=== PATIENT | male | born 1955 | race Caucasian/White ===

== ENCOUNTER 2020-08-26 04:41 | Inpatient (IN) | payer OTHER ==
[2020-08-26] MEDS ORDERED: PROPOFOL 20 ML ONE (13:06)
[2020-08-26] MEDS ORDERED: MIDAZOLAM HCL 2 MG/2 ML SINGLE DOSE VIAL ONE (13:07)
[2020-08-26] MEDS ORDERED: ACETAMINOPHEN 1000 MG/100 ML VIAL (NON FORMULARY) IVPB ONE (13:40)
[2020-08-26] MEDS ORDERED: DEXTROSE 5%-0.45% SALINE 1,000 ML IV SCH (13:45)
[2020-08-26] MEDS ORDERED: ceFAZolin SODIUM 1 GM VIAL IVPB ONE (13:55)
[2020-08-26] MEDS ORDERED: ceFAZolin SODIUM 1 GM VIAL ONE (14:11)
[2020-08-26] MEDS: DEXTROSE 5%-0.45% SALINE 1,000 ML IV SCH (16:00)
[2020-08-26] MEDS ORDERED: ACETAMINOPHEN INJECTION 100 ML IVPB ONE (16:12)
[2020-08-26] MEDS ORDERED: LIDOCAINE HCL 2% JELLY (30 ML/TUBE) TP ONE (22:10)
[2020-08-26] MEDS ORDERED: morphine SULFATE 4 MG/ML VIAL IVPUSH ONE (22:10)
[2020-08-27] MEDS: DEXTROSE 5%-0.45% SALINE 1,000 ML IV SCH ×2 (01:00→15:56)
[2020-08-27] MEDS ORDERED: MELATONIN 5 MG TABLETS PO ONE (03:45)
[2020-08-27] MEDS ORDERED: morphine SULFATE 4 MG/ML VIAL IVPUSH ONE (03:46)
[2020-08-27] MEDS ORDERED: HYDROmorphone HCL 2 MG TABLET PO PRN (09:01)
[2020-08-27 09:12] LABS: BASO % 0.1 % (0-2.0); EOS % 0.1 % (0-4.5); HEMATOCRIT 37.6 % (35.4-49); HEMOGLOBIN 12.6 GM/dL (11.7-16.9); LYMPH % 2.6 % (8-40); MCH 28.4 pg (25.7-33.7); MCHC 33.5 g/dl (32.0-35.9); MEAN CELL VOLUME 84.6 fl (80-96); MONO % 4.5 % (3.8-10.2); NEUT % 92.7 % (42.8-82.8); PLATELET COUNT 204 K/MM3 (134-434); RBC 4.44 M/mm3 (4.00-5.60); RDW 13.3 % (11.9-15.9); WHITE BLOOD COUNT 11.4 K/mm3 (4.0-10.0)
[2020-08-27 09:27] LABS: CALCIUM 8.1 mg/dL (8.5-10.1)
[2020-08-27 09:28] LABS: BLOOD UREA NITROGEN 8.9 mg/dL (7-18)
[2020-08-27 09:31] LABS: CREATININE 0.6 mg/dL (0.55-1.3)
[2020-08-27] MEDS: OXYBUTYNIN CHLORIDE 5 MG TABLET PO SCH ×2 (11:12→22:02)
[2020-08-27] MEDS: CEFAZOLIN 1 GM/D5W 1 GM/50 ML BAG IVPB SCH ×2 (11:41→18:10)
[2020-08-27 12:01] LABS: ANISOCYTOSIS 1+; MACROCYTOSIS 0; OVALOCYTE 1+; PLATELET ESTIMATE NORMAL; TOXIC GRANULATION 2+
[2020-08-28] MEDS: CEFAZOLIN 1 GM/D5W 1 GM/50 ML BAG IVPB SCH ×3 (02:34→17:29)
[2020-08-28] MEDS ORDERED: PT OWN MED DRAWER 7, Y5N ONE (09:49)
[2020-08-28] MEDS: OXYBUTYNIN CHLORIDE 5 MG TABLET PO SCH (09:51)
[2020-08-28] MEDS: DEXTROSE 5%-0.45% SALINE 1,000 ML IV SCH (09:54)
[2020-08-28] MEDS ORDERED: ALPRAZolam 1 MG TABLET PO PRN (11:12)
[2020-08-28 21:59] LABS: ARTERIAL BLD GAS O2 SATURATION 88.3 mmHg (95-98); ARTERIAL BLOOD GAS BASE EXCESS -3.9 mmol/L (-2-2); ARTERIAL BLOOD GAS PO2 81.6 mmHg (80-100)
[2020-08-28 22:01] LABS: ALLENS TEST POSITIVE; ARTERIAL BLOOD GAS pH 7.021 (7.350-7.450)
[2020-08-28 22:02] LABS: VENT MODE A/C; VENT RATE 20
[2020-08-28 22:09] LABS: BASO % 0.3 % (0-2.0); EOS % 0.1 % (0-4.5); HEMATOCRIT 28.4 % (35.4-49); HEMOGLOBIN 9.4 GM/dL (11.7-16.9); MEAN CELL VOLUME 87.8 fl (80-96); MEAN PLT VOLUME 8.6 fl (7.5-11.1); MONO % 3.4 % (3.8-10.2); NEUT % 79.2 % (42.8-82.8); PLATELET COUNT 190 K/MM3 (134-434); RBC 3.23 M/mm3 (4.00-5.60); RDW 13.2 % (11.9-15.9); WHITE BLOOD COUNT 7.3 K/mm3 (4.0-10.0)
[2020-08-28] MEDS ORDERED: PROPOFOL 1,000,000 MCG/100 ML VIAL IVPB SCH (22:30)
[2020-08-28] MEDS ORDERED: FENTANYL IVPB 500 MCG/100 ML BAG IVPB SCH (22:30)
[2020-08-28] MEDS ORDERED: PROPOFOL 1,000,000 MCG/100 ML VIAL ONE (22:31)
[2020-08-28 22:43] LABS: CHLORIDE 96 mmol/L (98-107); SODIUM 137 mmol/L (136-145)
[2020-08-28 22:45] LABS: CALCIUM 8.9 mg/dL (8.5-10.1)
[2020-08-28 22:46] LABS: ANION GAP 8 MMOL/L (8-16); CO2 33 mmol/L (21-32); GLUCOSE,RANDOM 270 mg/dL (74-106); MAGNESIUM 2.7 mg/dL (1.8-2.4)
[2020-08-28 22:49] LABS: CREATININE 0.9 mg/dL (0.55-1.3); PHOSPHOROUS 7.9 mg/dL (2.5-4.9); SGOT/AST 35 U/L (15-37); SGPT/ALT 38 U/L (13-61)
[2020-08-28 22:51] LABS: BILIRUBIN,TOTAL 0.4 mg/dL (0.2-1); TOT PROT 4.1 g/dl (6.4-8.2)
[2020-08-28 22:52] LABS: ALK PHOS 50 U/L (45-117)
[2020-08-28] MEDS ORDERED: PIPERACILLIN/TAZOB 3.375 GM 3.375 GM in DEXTROSE 5%-WATER - 50 ML IVPB ONE (23:10)
[2020-08-28] MEDS ORDERED: VANCOMYCIN 1 GM in D5W (PRE-DOCKED) 1,000 MG/250 ML IVPB ONE (23:20)
[2020-08-28] MEDS ORDERED: NOREPINEPHRINE NS PREMIX 8,000 MCG/500 ML BAG IVPB SCH (23:30)
[2020-08-28] MEDS ORDERED: VANCOMYCIN 1 GRAM (PRE-DOCKED) 1,000 MG/250 ML BAG IVPB ONE (23:30)
[2020-08-28] MEDS ORDERED: MIDAZOLAM IN 0.9 % SOD.CHLORID 100 MG/100 ML PLAST..BAG IVPB SCH (23:45)
[2020-08-28 23:56] LABS: ARTERIAL BLD GAS O2 SATURATION 58.8 mmHg (95-98)
[2020-08-28 23:57] LABS: ALLENS TEST POSITIVE
[2020-08-28 23:58] LABS: VENT MODE A/C; VENT RATE 25
[2020-08-28] MEDS ORDERED: NOREPINEPHRINE BITARTRATE 8,000 MCG/500 ML BAG IVPB ONE (23:58)
[2020-08-28] MEDS ORDERED: NOREPINEPHRINE BITARTRATE 4 MG/4 ML ML IV ONE (23:58)
[2020-08-29] MEDS ORDERED: SODIUM CHLORIDE 1,000 ML IV STA (00:23)
[2020-08-29] MEDS ORDERED: PROPOFOL 1,000,000 MCG/100 ML VIAL IVPB SCH (00:24)
[2020-08-29] MEDS ORDERED: PIPERACILLIN/TAZOB 3.375 GM 3.375 GM in DEXTROSE 5%-WATER - 50 ML IVPB ONE ×2 (00:24→08:00)
[2020-08-29] MEDS ORDERED: DEXTROSE 5%-0.45% SALINE 1,000 ML IV SCH (00:24)
[2020-08-29] MEDS ORDERED: VANCOMYCIN 1 GRAM (PRE-DOCKED) 1,000 MG/250 ML BAG IVPB ONE (00:24)
[2020-08-29] MEDS ORDERED: PHENYLEPHRINE HCL 10 MG/1 ML SINGLE DOSE VIAL ONE (00:32)
[2020-08-29] MEDS ORDERED: PIPERACILLIN/TAZOBACTAM 3.375 GM VIAL IVPB ONE ×3 (00:51→16:58)
[2020-08-29] MEDS ORDERED: DEXTROSE 5%-WATER - 50 ML IVPB ONE ×3 (00:51→16:58)
[2020-08-29] MEDS: PHENYLEPHRINE NS PREMIX 50,000 MCG/500 ML BAG CVP SCH ×2 (01:00→08:05)
[2020-08-29] MEDS: FENTANYL IVPB 500 MCG/100 ML BAG IVPB SCH ×3 (01:00→18:50)
[2020-08-29] MEDS: OXYBUTYNIN CHLORIDE 5 MG TABLET PO SCH ×3 (01:25→22:18)
[2020-08-29] MEDS: DEXTROSE 5%-0.45% SALINE 1,000 ML IV SCH (01:25)
[2020-08-29] MEDS: MUPIROCIN 2% TOPICAL OINTMENT FOR DECOLONIZATION NS SCH ×3 (01:32→22:18)
[2020-08-29] MEDS ORDERED: FUROSEMIDE 40 MG/4 ML INJECTABLE VIAL IVPUSH ONE (02:07)
[2020-08-29] MEDS: MIDAZOLAM IN 0.9 % SOD.CHLORID 100 MG/100 ML PLAST..BAG IVPB SCH ×2 (02:09→12:55)
[2020-08-29] MEDS: NOREPINEPHRINE NS PREMIX 8,000 MCG/500 ML BAG IVPB SCH (02:09)
[2020-08-29] MEDS ORDERED: FUROSEMIDE 40 MG/4 ML INJECTABLE VIAL ONE (02:18)
[2020-08-29 02:21] LABS: BASO % 0.1 % (0-2.0); EOS % 0.1 % (0-4.5); HEMOGLOBIN 11.9 GM/dL (11.7-16.9); LYMPH % 12.5 % (8-40); MCH 28.8 pg (25.7-33.7); MEAN CELL VOLUME 87.2 fl (80-96); MEAN PLT VOLUME 9.2 fl (7.5-11.1); MONO % 3.3 % (3.8-10.2); PLATELET COUNT 170 K/MM3 (134-434); RBC 4.13 M/mm3 (4.00-5.60); RDW 13.3 % (11.9-15.9); WHITE BLOOD COUNT 2.8 K/mm3 (4.0-10.0)
[2020-08-29] MEDS: CEFAZOLIN 1 GM/D5W 1 GM/50 ML BAG IVPB SCH ×2 (02:28→10:15)
[2020-08-29] MEDS ORDERED: VASOPRESSIN 40 UNITS in SODIUM CHLORIDE 98 ML IVPB SCH ×2 (02:30→16:15)
[2020-08-29] MEDS ORDERED: FUROSEMIDE INJECTION 100 MG in SODIUM CHLORIDE 40 ML IVPB SCH (03:00)
[2020-08-29 03:27] LABS: LACTIC ACID 6.5 mmol/L (0.4-2.0)
[2020-08-29 04:13] LABS: ARTERIAL BLD GAS O2 SATURATION 81.7 mmHg (95-98); ARTERIAL BLOOD GAS BASE EXCESS -3.4 mmol/L (-2-2); ARTERIAL BLOOD GAS PO2 54.2 mmHg (80-100); ARTERIAL BLOOD GAS pH 7.236 (7.350-7.450)
[2020-08-29 04:14] LABS: ALLENS TEST POSITIVE; VENT MODE A/C
[2020-08-29 04:15] LABS: VENT RATE 26
[2020-08-29] MEDS ORDERED: HYDROCORTISONE 10 MG TABLET PO SCH (04:15)
[2020-08-29] MEDS: SODIUM CHLORIDE 1,000 ML IV SCH (04:30)
[2020-08-29] MEDS: DOPAMINE 400 MG/D5W - 400,000 MCG/250 ML INFUS.BAG IVPB SCH (06:27)
[2020-08-29 07:09] LABS: PLATELET ESTIMATE ADEQUATE
[2020-08-29 07:46] LABS: CALCIUM 8.2 mg/dL (8.5-10.1)
[2020-08-29 07:47] LABS: BLOOD UREA NITROGEN 13.1 mg/dL (7-18)
[2020-08-29 07:50] LABS: BASO % 0.2 % (0-2.0); EOS % 0.1 % (0-4.5); HEMATOCRIT 39.8 % (35.4-49); HEMOGLOBIN 13.2 GM/dL (11.7-16.9); LYMPH % 12.8 % (8-40); MCH 28.6 pg (25.7-33.7); MCHC 33.1 g/dl (32.0-35.9); MEAN CELL VOLUME 86.4 fl (80-96); MEAN PLT VOLUME 9.2 fl (7.5-11.1); MONO % 13.5 % (3.8-10.2); NEUT % 73.4 % (42.8-82.8); PLATELET COUNT 170 K/MM3 (134-434); RBC 4.61 M/mm3 (4.00-5.60); RDW 13.2 % (11.9-15.9); WHITE BLOOD COUNT 3.5 K/mm3 (4.0-10.0)
[2020-08-29 08:02] LABS: LACTIC ACID 8.2 mmol/L (0.4-2.0)
[2020-08-29 09:34] LABS: LACTIC ACID 5.2 mmol/L (0.4-2.0)
[2020-08-29 09:49] LABS: ARTERIAL BLD GAS O2 SATURATION 97.7 mmHg (95-98); ARTERIAL BLOOD GAS BASE EXCESS -3.9 mmol/L (-2-2); ARTERIAL BLOOD GAS pH 7.312 (7.350-7.450)
[2020-08-29 09:51] LABS: ALLENS TEST POSITIVE; VENT MODE AC; VENT RATE 28
[2020-08-29] MEDS: PANTOPRAZOLE SODIUM 40 MG VIAL IVPUSH SCH ×2 (10:20→22:18)
[2020-08-29 10:24] LABS: ANISOCYTOSIS 1+; MACROCYTOSIS 0; PLATELET ESTIMATE NORMAL
[2020-08-29] MEDS: VANCOMYCIN 1 GRAM (PRE-DOCKED) 1,000 MG/250 ML BAG IVPB SCH ×2 (12:55→22:52)
[2020-08-29] MEDS: HYDROCORTISONE SOD SUCCINATE 100 MG/2 ML VIAL IVPUSH SCH ×2 (16:07→21:00)
[2020-08-29] MEDS: FLUDROCORTISONE ACETATE 0.1 MG TABLET (FP) PO SCH (16:07)
[2020-08-29] MEDS: PIPERACILLIN/TAZOB 3.375 GM 3.375 GM in DEXTROSE 5%-WATER - 50 ML IVPB SCH (17:10)
[2020-08-29 21:38] VITALS: BMI 26.1
[2020-08-29] MEDS ORDERED: CHLORHEXIDINE GLUCONATE 4% CLEANSER FOR DECOLONIZATION TP SCH (22:00)
[2020-08-30] MEDS: NOREPINEPHRINE NS PREMIX 8,000 MCG/500 ML BAG IVPB SCH
[2020-08-30] MEDS ORDERED: DEXTROSE 5%-WATER - 50 ML IVPB ONE ×3 (00:56→17:22)
[2020-08-30] MEDS ORDERED: PIPERACILLIN/TAZOBACTAM 3.375 GM VIAL IVPB ONE ×3 (00:56→17:22)
[2020-08-30] MEDS: FENTANYL IVPB 500 MCG/100 ML BAG IVPB SCH (01:18)
[2020-08-30] MEDS: MIDAZOLAM IN 0.9 % SOD.CHLORID 100 MG/100 ML PLAST..BAG IVPB SCH (01:18)
[2020-08-30] MEDS: PIPERACILLIN/TAZOB 3.375 GM 3.375 GM in DEXTROSE 5%-WATER - 50 ML IVPB SCH ×3 (01:19→17:15)
[2020-08-30] MEDS: PHENYLEPHRINE NS PREMIX 50,000 MCG/500 ML BAG CVP SCH (01:19)
[2020-08-30] MEDS: HYDROCORTISONE SOD SUCCINATE 100 MG/2 ML VIAL IVPUSH SCH ×3 (03:59→14:43)
[2020-08-30] MEDS ORDERED: NOREPINEPHRINE NS PREMIX 16,000 MCG/500 ML BAG IVPB SCH (04:30)
[2020-08-30] MEDS ORDERED: RAPID SEQUENCE INTUBATION KIT NR ONE (05:00)
[2020-08-30] MEDS: SODIUM CHLORIDE 1,000 ML IV SCH (05:11)
[2020-08-30 06:57] LABS: ARTERIAL BLD GAS O2 SATURATION 98.1 mmHg (95-98); ARTERIAL BLOOD GAS BASE EXCESS -6.4 mmol/L (-2-2); ARTERIAL BLOOD GAS PO2 130.5 mmHg (80-100); ARTERIAL BLOOD GAS pH 7.249 (7.350-7.450)
[2020-08-30 06:59] LABS: VENT MODE A/C; VENT RATE 28
[2020-08-30] MEDS: DOPAMINE 400 MG/D5W - 400,000 MCG/250 ML INFUS.BAG IVPB SCH (07:58)
[2020-08-30 08:10] LABS: ALBUMIN 1.7 g/dl (3.4-5.0); BLOOD UREA NITROGEN 32.1 mg/dL (7-18)
[2020-08-30 08:11] LABS: CALCIUM 7.5 mg/dL (8.5-10.1); MAGNESIUM 1.7 mg/dL (1.8-2.4)
[2020-08-30 08:13] LABS: PHOSPHOROUS 2.3 mg/dL (2.5-4.9)
[2020-08-30 08:15] LABS: BILIRUBIN,TOTAL 1.2 mg/dL (0.2-1)
[2020-08-30 08:16] LABS: CREATININE 1.8 mg/dL (0.55-1.3)
[2020-08-30] MEDS ORDERED: MAGNESIUM SULF 50% (8.12 MEQ/2 ML-1 GM VIAL) IVPB ONE (08:56)
[2020-08-30] MEDS ORDERED: SODIUM PHOSPHATE - 30 MM in SODIUM CHLORIDE 250 ML IVPB ONE (08:56)
[2020-08-30] MEDS: MUPIROCIN 2% TOPICAL OINTMENT FOR DECOLONIZATION NS SCH (09:42)
[2020-08-30] MEDS: OXYBUTYNIN CHLORIDE 5 MG TABLET PO SCH (09:43)
[2020-08-30] MEDS: PANTOPRAZOLE SODIUM 40 MG VIAL IVPUSH SCH (09:43)
[2020-08-30] MEDS: FLUDROCORTISONE ACETATE 0.1 MG TABLET (FP) PO SCH (09:43)
[2020-08-30 10:02] LABS: BASO % 0.1 % (0-2.0); HEMATOCRIT 27.1 % (35.4-49); HEMOGLOBIN 9.4 GM/dL (11.7-16.9); LYMPH % 7.7 % (8-40); MCH 28.9 pg (25.7-33.7); MCHC 34.6 g/dl (32.0-35.9); MEAN CELL VOLUME 83.4 fl (80-96); MEAN PLT VOLUME 9.1 fl (7.5-11.1); MONO % 11.5 % (3.8-10.2); NEUT % 80.7 % (42.8-82.8); PLATELET COUNT 165 K/MM3 (134-434); RBC 3.24 M/mm3 (4.00-5.60); RDW 13.3 % (11.9-15.9); WHITE BLOOD COUNT 10.2 K/mm3 (4.0-10.0)
[2020-08-30] MEDS ORDERED: MIDAZOLAM HCL 2 MG/2 ML SINGLE DOSE VIAL IVPUSH ONE (10:36)
[2020-08-30] MEDS ORDERED: PROPOFOL 1,000,000 MCG/100 ML VIAL ONE (10:46)
[2020-08-30] MEDS ORDERED: PROPOFOL 1,000,000 MCG/100 ML VIAL IVPB SCH (11:00)
[2020-08-30] MEDS ORDERED: PANTOPRAZOLE SODIUM 40 MG VIAL IVPUSH SCH (14:00)
[2020-08-30] MEDS ORDERED: HEPARIN NA (PORCINE) 5,000 UNITS/ML 1ML VIAL SQ SCH (14:00)
[2020-08-30 18:55] VITALS: BP 103/76; PULSE 90; TEMP 98.2
== END 2020-08-30 21:07 | disposition short-term general hospital (02) | DRG 713 ==
LOC: EDSEX 04:41 → JASUSAT 04:41 → JASU-SURG 04:41 → J6S 17:27 → JASUSAT 17:28 → JICU 08-28 21:47
PROVIDERS: ADMIT Urology; ATTEND Urology
PROC: 0VT08ZZ Resection of Prostate, Via Natural or Artificial Opening Endoscopic (ICD-10-PCS; principal; 2020-08-26 14:00)
PROC: 05HN33Z Insertion of Infusion Device into Left Internal Jugular Vein, Percutaneous Approach (ICD-10-PCS; 2020-08-28)
PROC: B544ZZA Ultrasonography of Left Jugular Veins, Guidance (ICD-10-PCS; 2020-08-28)
PROC: 5A12012 Performance of Cardiac Output, Single, Manual (ICD-10-PCS; 2020-08-28)
PROC: 5A1945Z Respiratory Ventilation, 24-96 Consecutive Hours (ICD-10-PCS; 2020-08-28)
PROC: 0BH17EZ Insertion of Endotracheal Airway into Trachea, Via Natural or Artificial Opening (ICD-10-PCS; 2020-08-28)
PROC: 4A133B1 Monitoring of Arterial Pressure, Peripheral, Percutaneous Approach (ICD-10-PCS; 2020-08-29)
PROC: 4A133J1 Monitoring of Arterial Pulse, Peripheral, Percutaneous Approach (ICD-10-PCS; 2020-08-29)
DX: N40.1 Benign prostatic hyperplasia with lower urinary tract symptoms (principal); J69.0 Pneumonitis due to inhalation of food and vomit; J96.01 Acute respiratory failure with hypoxia; I46.9 Cardiac arrest, cause unspecified; R65.21 Severe sepsis with septic shock; A41.9 Sepsis, unspecified organism; I49.01 Ventricular fibrillation; E87.2 Acidosis; R33.9 Retention of urine, unspecified; I95.9 Hypotension, unspecified; D72.819 Decreased white blood cell count, unspecified; R31.9 Hematuria, unspecified
CPT/HCPCS: 36415; 36600; 70450-TC; 71045-TC-FY; 71275-TC; 74174-TC; 80048; 80053; 82550; 82553; 82803; 83605; 83735; 84100; 84484; 85025; 85379; 86900; 86922; 87040; 88305-TC; 93005; 93010; 93306-TC; 93970-TC; 94002; 94760; 95816; C9803; J0131; J1644; Q9967; U0003; U0005